=== PATIENT | male | born 1985 | race Caucasian/White ===

== ENCOUNTER 2016-12-13 15:36 | Emergency (ER) | payer MEDICAID, OTHER ==
--- NOTE | 2016-12-13 16:03 | NUR ---
PATIENT LEFT WITHOUT BEING SEEN BY DR. MUNIZ. NO FURTHER CARE PROVIDED FOR PATIENT.
== END 2016-12-13 16:03 | disposition left against medical advice (07) ==
LOC: MED 15:36
DX: S40.862A Insect bite (nonvenomous) of left upper arm, initial encounter (principal); Z53.21 Procedure and treatment not carried out due to patient leaving prior to being seen by health care provider; X58.XXXA Exposure to other specified factors, initial encounter; Y93.89 Activity, other specified; Y92.89 Other specified places as the place of occurrence of the external cause; Y99.8 Other external cause status

== ENCOUNTER 2018-01-03 16:55 | Emergency (ER) | payer OTHER ==
[~2018-01-03] VITALS: Ht 177.8 cm; Wt 86.2 kg
[2018-01-03 16:59] VITALS: BP 118/72
[2018-01-03 17:50] VITALS: BP 118/72
== END 2018-01-03 17:51 | disposition home or self-care (01) ==
LOC: MED 16:55
DX: Z00.00 Encounter for general adult medical examination without abnormal findings (principal); I10 Essential (primary) hypertension; F11.90 Opioid use, unspecified, uncomplicated; F19.90 Other psychoactive substance use, unspecified, uncomplicated
CPT/HCPCS: 99283

== ENCOUNTER 2018-03-31 14:57 | Emergency (ER) | payer SELFPAY ==
[~2018-03-31] VITALS: Ht 177.8 cm; Wt 83.9 kg
--- NOTE | 2018-03-31 14:57 | NUR ---
PT BIBA BLS TO BED 11
[2018-03-31 15:03] VITALS: BP 144/94
--- NOTE | 2018-03-31 15:19 | NUR ---
PT TAKEN TO CT VIA [facility]
--- NOTE | 2018-03-31 15:21 | NUR ---
Jeri tolliver in [facility] - 03/31/18 at 1521 [address] KURT [address]
--- NOTE | 2018-03-31 15:23 | NUR ---
BIB EMS FOUND AT A PARKING LOT AT A [facility] WITH C/O ABRASION AND 3/4 LACERATION ON LT SIDE OF HEAD S/P WITNESS FALL; HAD 2 CANS OF BEER PER PT HX; DENIES RX; NONE
--- NOTE | 2018-03-31 18:27 | NUR ---
PT ROAD TESTED AND COULD NOT WALK WITH STEADY GAIT. PATIENT GIVEN MEAL AND PLACED BACK IN BED. EDMD AWARE
[2018-03-31 18:44] VITALS: BP 135/83
== END 2018-03-31 18:44 | disposition home or self-care (01) ==
LOC: MED 14:57
DX: S00.81XA Abrasion of other part of head, initial encounter (principal); S00.01XA Abrasion of scalp, initial encounter; F10.129 Alcohol abuse with intoxication, unspecified; I10 Essential (primary) hypertension; W19.XXXA Unspecified fall, initial encounter; Y93.89 Activity, other specified; Y92.481 Parking lot as the place of occurrence of the external cause; Y99.8 Other external cause status
CPT/HCPCS: 70450; 90471; 90715; 99284

== ENCOUNTER 2020-07-06 11:54 | Emergency (ER) | payer MEDICAID ==
[~2020-07-06] VITALS: Ht 175.3 cm; Wt 77.1 kg
--- NOTE | 2020-07-06 11:54 | NUR ---
Patient SEBASTIAN CRISTOBAL, transferred to chair D. RN evaluating patient.
[2020-07-06 12:00] VITALS: BP 142/80
--- NOTE | 2020-07-06 12:06 | NUR ---
34 YEAR OLD MALE BIBA FROM STREET FOR ETOH. PER AMBULANCE PT WAS RELEASED FROM [facility] PUBLIC INTOXICATION RECENTLY, WAS FOUND ON [address]. PT LETHARGIC AND CONFUSED, BREATHING EVEN AND UNLABORED, SKIN WARM AND DRY. PT PLACED NEXT TO NURSING STATION, WILL CONTINUE TO MONITOR PMH - ETOH ABUSE ALLERGIES - NKA
--- NOTE | 2020-07-06 16:01 | NUR ---
Dr. Toibn with pt for MSE.
[2020-07-06 16:06] VITALS: BP 136/79
--- NOTE | 2020-07-06 16:09 | NUR ---
Patient discharged with v/s stable. Written and verbal after care instructions given and explained. Patient verbalized understanding. Ambulatory with steady gait. All questions addressed prior to discharge. Advised to follow up with PMD.
== END 2020-07-06 16:09 | disposition home or self-care (01) ==
LOC: MED 11:54
DX: F10.129 Alcohol abuse with intoxication, unspecified (principal)
CPT/HCPCS: 99283